=== PATIENT | female | born 2000 | race Caucasian/White ===

== ENCOUNTER → 2021-01-24 14:21 | Outpatient (BNVA) | payer BC, SELFPAY | PROVIDERS: Family Provider Pediatrics Adolescent Medicine; PCP Nurse Practitioner; Visit Provider Nurse Practitioner | DX: R50.9 Fever, unspecified (principal); Z20.822 Contact with and (suspected) exposure to COVID-19 | CPT/HCPCS: 80053; 81003; 85025; 87046; 87077; 87086; 87184; 87635 ==

== ENCOUNTER → 2021-01-26 11:19 | Outpatient (BNVA) | payer BC, SELFPAY | PROVIDERS: Family Provider Pediatrics Adolescent Medicine; PCP Nurse Practitioner; Visit Provider Nurse Practitioner | DX: R50.9 Fever, unspecified (principal); R74.8 Abnormal levels of other serum enzymes | CPT/HCPCS: 71046; 85025; 86308; 86618; 86666; 86705; 86706; 86709; 86757; 86803; 87340 ==

== ENCOUNTER 2021-01-28 10:16 | Outpatient (CLI) | payer BC, SELFPAY ==
[2021-01-28 12:12] LABS: Alanine Aminotransferase 132 U/L (0-33); Albumin Level 3.8 g/dL (3.5-5.2); Alkaline Phosphatase 300 IU/L (35-105); Anion Gap 18.1 (5-19); Aspartate Amino Transferase 82 U/L (0-32); Blood Urea Nitrogen 5 mg/dL (6-20); Calcium 8.5 mg/dL (8.5-10.5); Carbon Dioxide 25 mmol/L (22-29); Chloride 97 mmol/L (98-107); Globulin 4.1 g/dL (1.3-4.6); Glomerular Filtration Rate 105.6 mL/min (90-130); Glucose 89 mg/dL (65-115); Osmolality Calculated 281 mOsm/kg (285-295); Potassium 3.1 mmol/L (3.5-5.1); Sodium 137 mmol/L (136-145); Total Bilirubin 0.3 mg/dL (0.15-1.2); Total Protein 7.9 g/dL (6.6-8.7)
[2021-01-28 12:24] LABS: Rapid Plasma Reagin Syphilis Nonreactive (Nonreactive)
[2021-01-28 13:21] LABS: HIV 1 & 2 Antigen Non-Reactive (Non-Reactiv)
[2021-01-28 13:22] LABS: HIV 1 & 2 Antibody Non-Reactive (Non-Reactiv)
== END 2021-01-28 10:17 | disposition home or self-care (01) ==
PROVIDERS: PCP Nurse Practitioner; Visit Provider Nurse Practitioner
DX: R50.9 Fever, unspecified (principal); R19.5 Other fecal abnormalities
CPT/HCPCS: 80053; 86592; 87040; 87506; 87806

== ENCOUNTER 2021-02-02 13:19 | Outpatient (CLI) | payer BC, SELFPAY ==
--- NOTE | 2021-02-02 13:26 | CT_ITS ---
WS: [id number] CT HEAD TECHNIQUE: Noncontrast CT of the head obtained from the skullbase to the vertex. CLINICAL INFORMATION: R50.9 - Fever, unspecified COMPARISON: CT 1 DLP: 925.[address] scans at [facility] use at least one of these dose optimization techniques: automated e xposure control; mA and/or kV adjustment per patient size (includes targeted exams where dose is matc hed to clinical indication); or iterative reconstruction. FINDINGS: No evidence of intracranial hemorrhage or mass effect. Ventricular system and basal cisterns are olivo nt. No extra-axial fluid collections. No evidence of mass or mass effect. Normal allen-white different iation. Paranasal sinuses and mastoid air cells are well aerated. .Normal visualized soft tissues. CT/CT head wo con* [id number] IMPRESSION: 1. No evidence of intracranial hemorrhage or mass effect. 2. Paranasal sinuses and mastoid air cells are well aerated. 3. No acute intracranial findings.
--- NOTE | 2021-02-02 13:30 | CT_ITS ---
WS: [id number] CT CHEST, ABDOMEN, AND PELVIS TECHNIQUE: Noncontrast CT of the chest, abdomen, and pelvis with coronal and sagittal reformatted tamiko ges. CLINICAL INFORMATION: R50.9 - Fever, unspecified COMPARISON: None. DLP: 1989.[address] scans at [facility] use at least one of these dose optimization techniques: automated e xposure control; mA and/or kV adjustment per patient size (includes targeted exams where dose is matc hed to clinical indication); or iterative reconstruction. CT CHEST: Both lungs are well aerated. No acute pulmonary infiltrates. No suspicious pulmonary parenchymal opac ities. No focal pneumonia or pleural fluid. Normal caliber thoracic aorta. No mediastinal or hilar lymphadenopathy. No axillary lymphadenopathy. CT ABDOMEN AND PELVIS: Mild hepatomegaly. Noncontrast liver otherwise normal. Normal gallbladder. Spleen size upper limits o f normal measuring 11 mm. Normal GE junction. Adrenal glands are normal. No hydronephrosis in either kidney. Normal caliber abdominal aorta. Small amount of free fluid in the cul-de-sac. Left ovarian cyst measuring 2.1 cm. Diffuse transmural mucosal thickening involving the colon with submucosal edema. This is worse involv ing the cecum, right ascending colon, transverse colon. Less prominent involvement involving the left descending and sigmoid colon. Findings compatible with infectious or inflammatory colitis. Loss of t he normal haustrations involving the right colon and transverse colon. Mild involvement of the termin al ileum with wall thickening. This can be seen with backwash ileitis in association with inflammator y bowel disease. Mild involvement of the distal sigmoid and rectosigmoid. Small bowel is otherwise normal in appearance. Reactive lymph nodes along the central mesentery and r ight lower quadrant. CT/CT chest abd pel wo con IMPRESSION: 1. Diffuse colonic wall thickening with loss of the normal haustrations involv ing the cecum, right ascending colon, and transverse colon. Less prominent invo lvement left descending colon and sigmoid colon. 2. Findings compatible with infectious or inflammatory colitis. Consider infla mmatory bowel disease ulcerative colitis and Crohn's disease. Consider gastroen terology consultation. 3. Mild involvement of the terminal ileum. Small bowel otherwise appears marivel l. 4. Reactive lymph nodes along the central mesentery and right lower quadrant. 5. No evidence of high-grade small or obstruction. 6. Small amount of free fluid in the cul-de-sac. 7. Left ovarian cyst 2.1 CM. 8. Normal chest CT.
[2021-02-02] MEDS: iohexol 300 mg/mL 50 mL Btl PO (14:33)
== END 2021-02-02 13:20 | disposition home or self-care (01) ==
PROVIDERS: PCP Nurse Practitioner; Visit Provider Nurse Practitioner
DX: R50.9 Fever, unspecified (principal); R74.8 Abnormal levels of other serum enzymes; N83.202 Unspecified ovarian cyst, left side
CPT/HCPCS: 70450; 71250; 74176; 80048; 85651; 86038; 86140; 86431; 86788; 86789; 87400; Q9967

== ENCOUNTER → 2021-02-15 10:02 | Outpatient (BNVA) | payer BC, SELFPAY | PROVIDERS: PCP Nurse Practitioner; Visit Provider Student in an Organized Health Care Education/Training Program | DX: K51.90 Ulcerative colitis, unspecified, without complications (principal) | CPT/HCPCS: 87493; 87506 ==

== ENCOUNTER → 2021-08-04 13:28 | Outpatient (BNVA) | payer BC, SELFPAY | PROVIDERS: PCP Nurse Practitioner; Visit Provider Nurse Practitioner | DX: R00.0 Tachycardia, unspecified (principal); F41.9 Anxiety disorder, unspecified | CPT/HCPCS: 80053; 84443; 85025 ==

== ENCOUNTER → 2023-01-11 14:07 | Outpatient (BNVA) | payer BC, SELFPAY | PROVIDERS: PCP Nurse Practitioner; Visit Provider Nurse Practitioner | DX: F41.9 Anxiety disorder, unspecified (principal); R00.0 Tachycardia, unspecified | CPT/HCPCS: 80053; 85025 ==

== ENCOUNTER → 2024-05-13 16:34 | Outpatient (BNVA) | payer BC, SELFPAY | PROVIDERS: PCP Nurse Practitioner; Visit Provider Nurse Practitioner | DX: R00.0 Tachycardia, unspecified (principal); F41.9 Anxiety disorder, unspecified | CPT/HCPCS: 80053; 80061; 84443; 85025 ==

== ENCOUNTER → 2024-07-31 10:12 | Outpatient (BNVA) | payer BC, SELFPAY | PROVIDERS: PCP Nurse Practitioner; Visit Provider Clinical Nurse Specialist Adult Health | DX: J06.9 Acute upper respiratory infection, unspecified (principal) | CPT/HCPCS: 87400 ==

== ENCOUNTER → 2024-12-25 10:09 | Outpatient (BNVA) | payer BC, SELFPAY | PROVIDERS: PCP Nurse Practitioner; Visit Provider Nurse Practitioner | DX: F41.9 Anxiety disorder, unspecified (principal); R00.0 Tachycardia, unspecified | CPT/HCPCS: 80053 ==

== ENCOUNTER → 2025-02-23 17:30 | Outpatient (BNVA) | payer BC, SELFPAY | PROVIDERS: PCP Nurse Practitioner; Visit Provider Nurse Practitioner | DX: Z30.49 Encounter for surveillance of other contraceptives (principal); E66.811 Obesity, class 1; R00.0 Tachycardia, unspecified | CPT/HCPCS: 88175 ==